=== PATIENT | male | born 1960 | race Caucasian/White ===

== ENCOUNTER 2020-03-03 16:46 | Emergency (ER) | payer SELFPAY ==
[~2020-03-03] VITALS: Ht 167.6 cm; Wt 77.3 kg
[2020-03-03 17:18] VITALS: BP 153/81
== END 2020-03-03 18:53 | disposition home or self-care (01) ==
LOC: ER 16:46
DX: J18.9 Pneumonia, unspecified organism (principal); R03.0 Elevated blood-pressure reading, without diagnosis of hypertension; M79.662 Pain in left lower leg; M79.661 Pain in right lower leg
CPT/HCPCS: 71045; 99283